=== PATIENT | male | born 1985 | race Caucasian/White ===

== ENCOUNTER → 2016-10-19 | Outpatient (CLI) | payer BC, OTHER ==
[~2016-10-19] MED LIST: DIAZ-165 PO; ENOX40IN SQ; FLUO10CA48 PO
--- NOTE | 2016-10-19 15:37 | DIAGNOSTIC IMAGING REPORT ---
BILATERAL KNEES 3 VIEWS EACH CLINICAL HISTORY: Bilateral PATELLOFEMORAL SYNDROME . COMPARISON STUDY: None. FINDINGS: No fracture or dislocation within the right or left knee. Cartilage spaces are maintained for age. Evidence for left ACL repair. The hardware appears intact. No knee effusions. Soft tissues are unremarkable. Tiny marginal osteophytes seen within the patella. IMPRESSION: Tiny marginal osteophytes seen at the bilateral patellae consistent with minimal degenerative change. Prior left ACL repair. Electronically signed by: Russell Piña M.D. 10/19/2016 3:36 PM Dictated Date/Time: 10/19/2016 3:28 PM
== END | disposition home or self-care (01) ==
LOC: C.RDSM 14:28
PROVIDERS: ATTEND Physician Assistant
DX: M22.2X2 Patellofemoral disorders, left knee (principal); M22.2X1 Patellofemoral disorders, right knee

== ENCOUNTER → 2017-09-04 | Outpatient (CLI) | payer BC | END | disposition home or self-care (01) | LOC: C.LABSPEC 17:59 | PROVIDERS: ATTEND Physician Assistant | DX: M25.462 Effusion, left knee (principal) ==

== ENCOUNTER → 2017-09-04 | Outpatient (CLI) | payer BC ==
--- NOTE | 2017-09-04 17:07 | DIAGNOSTIC IMAGING REPORT ---
BILATERAL KNEES 4 VIEWS EACH CLINICAL HISTORY: CHRONIC B/L KNEE PAIN COMPARISON STUDY: Right knee 10/19/2016. FINDINGS: No fracture or dislocation within the right or left knee. Evidence for prior left ACL repair. The hardware appears intact. Cartilage spaces are maintained for age. Small left knee effusion. No significant right knee effusion. Small marginal osteophyte within the patellofemoral joints consistent with degenerative change. This remains unchanged. IMPRESSION: 1. 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 2. Small left knee effusion. Electronically signed by: Russell Piña M.D. 09/04/2017 5:06 PM Dictated Date/Time: 09/04/2017 5:03 PM
== END | disposition home or self-care (01) ==
LOC: C.RDSM 16:36
PROVIDERS: ATTEND Physician Assistant
DX: M25.561 Pain in right knee (principal); M25.562 Pain in left knee; M25.462 Effusion, left knee